=== PATIENT | female | born 1985 | race Two or more races ===

== ENCOUNTER 2021-10-30 02:48 | Inpatient (IN) | payer SELFPAY ==
[~2021-10-30] VITALS: Ht 160 cm; Wt 65.8 kg
[2021-10-30] MEDS ORDERED: CARBOPROST TROMETHAMINE 250 MCG/ML AMPUL IM PRN (03:00)
[2021-10-30] MEDS ORDERED: NALOXONE HCL 0.4 MG/ML 1ML VIAL IM PRN (03:00)
[2021-10-30] MEDS ORDERED: MISOPROSTOL 100MCG TABLET VG SCH (03:00)
[2021-10-30] MEDS ORDERED: METHYLERGONOVINE MALEATE 0.2 MG/ML IM PRN ×2 (03:00→03:45)
[2021-10-30] MEDS ORDERED: LACTATED RINGERS 1,000 ML IV SCH (03:00)
[2021-10-30] MEDS ORDERED: BUTORPHANOL TARTRATE 2 MG/ML VIAL IV PRN (03:00)
[2021-10-30] MEDS ORDERED: AMPICILLIN 2GM in NS 100ML 100 ML IV SCH (03:00)
[2021-10-30] MEDS ORDERED: RHO(D) IMMUNE GLOBULIN 300 MCG/SYR IM ONE (03:00)
[2021-10-30] MEDS ORDERED: LIDOCAINE HCL 1% 20ML VIAL (Pyxis) INJ INFIL SCH (03:00)
[2021-10-30] MEDS ORDERED: RHO(D) IMMUNE GLOBULIN 300 MCG/SYR IM PRN (03:30)
[2021-10-30] MEDS ORDERED: DIPHENHYDRAMINE 25MG CAPSULE PO PRN (03:30)
[2021-10-30] MEDS ORDERED: IBUPROFEN 400MG TABLET PO PRN (03:30)
[2021-10-30] MEDS: OXYTOCIN 30 UNITS/500ML NS PMX 500 ML IV SCH ×2 (03:41→04:17)
[2021-10-30 04:13] LABS: BASOPHILS % 0.3 % (0.0-2.0); EOSINOPHILS % 0.7 % (0.0-5.0); HEMATOCRIT. 25.8 % (36.0-48.0); HEMOGLOBIN. 7.7 g/dL (12.0-16.0); LYMPHOCYTES % 11.3 % (20.0-50.0); MEAN CORPUSCULAR HEMOGLOBIN 19.3 pg (28.0-32.0); MEAN CORPUSCULAR VOLUME 64.5 fL (81.0-99.0); MEAN PLATELET VOLUME 9.3 fl (7.4-10.4); MONOCYTES % 6.5 % (2.0-8.0); NEUTROPHILS % 81.2 % (40.0-76.0); PLATELET 331 x1000/uL (130-400); RED CELL DISTRIBUTION WIDTH 19.7 % (11.6-14.6)
[2021-10-30 04:23] LABS: CHLORIDE 108 mEq/L (98-107)
[2021-10-30] MEDS: IBUPROFEN 800MG TABLET PO PRN ×4 (04:25→23:53)
[2021-10-30 04:30] LABS: INR 0.9; PARTIAL THROMBOPLASTIN TIME 27.3 sec (23.4-31.0); PROTHROMBIN TIME 9.9 sec (9.6-11.0)
[2021-10-30 04:43] LABS: PLATELET ESTIMATE NORMAL
[2021-10-30 04:52] LABS: HEPATITIS B SURFACE ANTIGEN NEGATIVE
[2021-10-30 04:56] LABS: CLARITY URINE CLEAR (CLEAR); COLOR URINE YELLOW (YELLOW); KETONES URINE NEGATIVE (NEGATIVE); LEUKOCYTE ESTERASE URINE NEGATIVE (NEGATIVE); NITRITE URINE NEGATIVE (NEGATIVE); OCCULT BLOOD URINE NEGATIVE (NEGATIVE); PROTEIN URINE NEGATIVE (NEGATIVE); SPECIFIC GRAVITY URINE 1.017 (1.005-1.030)
[2021-10-30 05:08] LABS: *AMPHETAMINES SCREEN URINE NEGATIVE (NEGATIVE); *BARBITURATES SCREEN URINE NEGATIVE (NEGATIVE); *BENZODIAZEPINES SCREEN URINE NEGATIVE (NEGATIVE); CANNABINOID URINE SCREEN NEGATIVE (NEGATIVE); METHADONE URINE SCREEN NEGATIVE (NEGATIVE); OPIATES URINE SCREEN NEGATIVE (NEGATIVE); PHENCYCLIDINE URINE SCREEN NEGATIVE (NEGATIVE)
[2021-10-30 05:10] LABS: *COCAINE SCREEN URINE PRESUMTIVE POSITIVE (NEGATIVE)
[2021-10-30 05:35] VITALS: BP 114/59
[2021-10-30 06:05] VITALS: BP 120/60
[2021-10-30 06:35] VITALS: BP 117/59
[2021-10-30 08:00] VITALS: BP 103/50
[2021-10-30] MEDS ORDERED: AMPICILLIN 1,000 MG in SODIUM CHLORIDE 0.9% 50 ML IV SCH (09:00)
[2021-10-30] MEDS ORDERED: TETANUS, DIPHTHERIA, PERTUSSIS VAC/PF 0.5ML (>10YR OLD) IM ONE (09:00)
[2021-10-30] MEDS: PRENATAL VIT/FE FUMARATE/FA TABLET PO SCH (09:40)
[2021-10-30 16:00] VITALS: BP 97/52
[2021-10-30 20:00] VITALS: BP 115/36
[2021-10-31 04:00] VITALS: BP 105/45
[2021-10-31 06:33] LABS: BASOPHILS % 0.4 % (0.0-2.0); EOSINOPHILS % 1.6 % (0.0-5.0); HEMATOCRIT. 22.7 % (36.0-48.0); LYMPHOCYTES % 19.2 % (20.0-50.0); MEAN CORPUSCULAR HEMOGLOBIN 19.3 pg (28.0-32.0); MEAN CORPUSCULAR VOLUME 65.1 fL (81.0-99.0); MEAN PLATELET VOLUME 9.5 fl (7.4-10.4); MONOCYTES % 6.2 % (2.0-8.0); NEUTROPHILS % 72.6 % (40.0-76.0); PLATELET 297 x1000/uL (130-400); RED BLOOD CELL COUNT 3.49 mill/uL (4.2-5.4); RED CELL DISTRIBUTION WIDTH 19.6 % (11.6-14.6)
[2021-10-31 07:03] LABS: HEMOGLOBIN. 6.7 g/dL (12.0-16.0)
[2021-10-31] MEDS: PRENATAL VIT/FE FUMARATE/FA TABLET PO SCH (08:13)
[2021-10-31] MEDS: FERROUS SULFATE 325MG TABLET PO SCH ×3 (08:13→17:51)
[2021-10-31] MEDS: IBUPROFEN 800MG TABLET PO PRN ×2 (08:13→16:03)
[2021-10-31 08:15] VITALS: BP 126/59
[2021-10-31 16:00] VITALS: BP 100/49
[2021-10-31 20:00] VITALS: BP 101/54
[2021-11-01] MEDS: IBUPROFEN 800MG TABLET PO PRN (01:14)
[2021-11-01] MEDS ORDERED: IBUP-2030 PO (02:15)
[2021-11-03 14:08] LABS: COCAINE CONFIRMATION URINE Positive (.)
== END 2021-11-01 03:40 | disposition left against medical advice (07) | DRG 560 ==
LOC: OBSVTOIN 02:48 → 8 EST LDRP 02:48 → 8EST 07:03
PROVIDERS: ADMIT Obstetrics & Gynecology; ATTEND Obstetrics & Gynecology
PROC: 10E0XZZ Delivery of Products of Conception, External Approach (ICD-10-PCS; principal; 2021-10-30)
PROC: 10907ZC Drainage of Amniotic Fluid, Therapeutic from Products of Conception, Via Natural or Artificial Opening (ICD-10-PCS; 2021-10-30)
DX: O77.0 Labor and delivery complicated by meconium in amniotic fluid (principal); Z37.0 Single live birth; D62 Acute posthemorrhagic anemia; Z20.822 Contact with and (suspected) exposure to COVID-19; O34.211 Maternal care for low transverse scar from previous cesarean delivery; O69.1XX0 Labor and delivery complicated by cord around neck, with compression, not applicable or unspecified; O99.02 Anemia complicating childbirth; O62.3 Precipitate labor; Z82.49 Family history of ischemic heart disease and other diseases of the circulatory system; Z3A.37 37 weeks gestation of pregnancy; Z83.3 Family history of diabetes mellitus
CPT/HCPCS: 36415; 80053; 80305; 80353; 81003; 85025; 86592; 86703; 86762; 86850; 86870; 86900; 86920; 87340; 87426; 90715; J0290; J2210; J7120; J2590